=== PATIENT | female | born 1940 | race Caucasian/White ===

== ENCOUNTER 2021-04-11 11:55 | Inpatient (IN) ==
[2021-04-11] MEDS ORDERED: Al Hydrox/Mg Hydrox/Simet LIQ 30 ML UDC PO PRN (14:39)
[2021-04-11] MEDS ORDERED: Magnesium Hydroxide LIQ 30 ML UDC PO PRN (14:39)
[2021-04-11 14:45] LABS: Troponin I 0.11 ng/mL (<0.03)
[2021-04-11] MEDS ORDERED: NS 0.9% 1000 ml BAG 1,000 ML IV SCH (14:45)
[2021-04-11 17:31] LABS: Troponin I 0.06 ng/mL (<0.03)
[2021-04-11 19:42] LABS: Hematocrit 34 % (35-47); Hemoglobin 11.6 g/dL (12.0-16.0); Mean Corpuscular HGB Conc 34 g/dL (31-36); Mean Corpuscular Hemoglobin 31 pg (27-31); Mean Corpuscular Volume 91 fL (80-97); Mean Platelet Volume 6.6 fL (7.4-10.4); Platelet Count 280 10^3/uL (150-450); Red Blood Count 3.76 10^6 /uL (3.70-4.87); Red Cell Distribution Width 16 % (10-15); White Blood Count 18.7 10^3/uL (3.5-10.8)
[2021-04-11 20:40] LABS: ABS Lymphocytes 1.6 10^3/ul (1.0-4.8); ABS Monocytes 1.9 10^3/ul (0-0.8); ABS Neutrophils 15.2 10^3/ul (1.5-7.7); Eosinophil % 0.1 %; Lymphocyte % 8.3 %
[2021-04-11] MEDS ORDERED: Metoprolol Tartrate 5 mg VIAL 5 ml VIAL (1 mg/ml) IV ONE (23:58)
[2021-04-12] MEDS: cefTRIAXone 1 gm/50 mL NS BAG 1 GM/50 ML BAG IVPB SCH (05:13)
[2021-04-12 06:10] LABS: ABS Lymphocytes 1.4 10^3/ul (1.0-4.8); ABS Monocytes 1.5 10^3/ul (0-0.8); ABS Neutrophils 12.5 10^3/ul (1.5-7.7); Eosinophil % 0.1 %; Hematocrit 32 % (35-47); Hemoglobin 10.6 g/dL (12.0-16.0); Lymphocyte % 8.9 %; Mean Corpuscular HGB Conc 34 g/dL (31-36); Mean Corpuscular Hemoglobin 30 pg (27-31); Mean Corpuscular Volume 90 fL (80-97); Mean Platelet Volume 6.6 fL (7.4-10.4); Platelet Count 241 10^3/uL (150-450); Red Blood Count 3.51 10^6 /uL (3.70-4.87); Red Cell Distribution Width 16 % (10-15); White Blood Count 15.4 10^3/uL (3.5-10.8)
[2021-04-12 06:23] LABS: Potassium 4.8 mmol/L (3.5-5.0)
[2021-04-12 06:29] LABS: C Reactive Protein 47.31 mg/L (<8.01); eGFR CKD-EPI 29.7 (>60)
[2021-04-12] MEDS ORDERED: Perflutren Lipid Microsphere 3 ML VIAL ONE (10:12)
[2021-04-12] MEDS: Isosorbide Mononit ER 30mg TAB PO SCH (10:54)
[2021-04-12 13:11] LABS: Urine Appearance Cloudy; Urine Bilirubin Negative (Negative); Urine Blood 2+ (Negative); Urine Color Yellow; Urine Glucose Negative (Negative); Urine Ketones Negative (Negative); Urine Nitrite Negative (Negative); Urine Protein 1+(30 mg/dL) (Negative); Urine Specific Gravity 1.016 (1.002-1.030); Urine Urobilinogen Negative (Negative)
[2021-04-12 13:20] LABS: Urine Bacteria 1+ (Absent); Urine Red Blood Cell 3+(>10/hpf) (Absent); Urine White Blood Cell 1+(6-10/hpf) (Absent)
[2021-04-12] MEDS ORDERED: fentaNYL 100 mcg/2 ml 50 MCG/ML VIAL ONE (16:35)
[2021-04-13 05:43] LABS: ABS Monocytes 1.3 10^3/ul (0-0.8); ABS Neutrophils 10.7 10^3/ul (1.5-7.7); Eosinophil % 0.1 %; Hematocrit 27 % (35-47); Hemoglobin 9.3 g/dL (12.0-16.0); Lymphocyte % 7.8 %; Mean Corpuscular HGB Conc 34 g/dL (31-36); Mean Corpuscular Hemoglobin 31 pg (27-31); Mean Corpuscular Volume 89 fL (80-97); Mean Platelet Volume 6.7 fL (7.4-10.4); Platelet Count 214 10^3/uL (150-450); Red Blood Count 3.06 10^6 /uL (3.70-4.87); Red Cell Distribution Width 16 % (10-15); White Blood Count 13.1 10^3/uL (3.5-10.8)
[2021-04-13] MEDS: cefTRIAXone 1 gm/50 mL NS BAG 1 GM/50 ML BAG IVPB SCH (05:49)
[2021-04-13] MEDS: HYDROcodone/ACETAMIN 5/325 mg TAB PO PRN ×2 (05:54→20:10)
[2021-04-13 06:02] LABS: Calcium 8.1 mg/dL (8.6-10.3); Potassium 4.6 mmol/L (3.5-5.0); eGFR CKD-EPI 33.6 (>60)
[2021-04-13] MEDS: Isosorbide Mononit ER 30mg TAB PO SCH (08:41)
[2021-04-14 06:54] LABS: ABS Monocytes 0.9 10^3/ul (0-0.8); Eosinophil % 0.2 %; Hematocrit 26 % (35-47); Hemoglobin 8.7 g/dL (12.0-16.0); Mean Corpuscular HGB Conc 34 g/dL (31-36); Mean Corpuscular Hemoglobin 31 pg (27-31); Mean Corpuscular Volume 90 fL (80-97); Mean Platelet Volume 7.1 fL (7.4-10.4); Nucleated Red Blood Cells % 0.1; Platelet Count 202 10^3/uL (150-450); Red Blood Count 2.83 10^6 /uL (3.70-4.87); Red Cell Distribution Width 16 % (10-15); White Blood Count 10.9 10^3/uL (3.5-10.8)
[2021-04-14] MEDS: Isosorbide Mononit ER 30mg TAB PO SCH (09:48)
[2021-04-14] MEDS: HYDROcodone/ACETAMIN 5/325 mg TAB PO PRN (13:52)
[2021-04-15 06:13] LABS: ABS Lymphocytes 0.9 10^3/ul (1.0-4.8); ABS Monocytes 0.7 10^3/ul (0-0.8); ABS Neutrophils 8.2 10^3/ul (1.5-7.7); Eosinophil % 0.2 %; Hematocrit 27 % (35-47); Hemoglobin 9.2 g/dL (12.0-16.0); Lymphocyte % 9.1 %; Mean Corpuscular HGB Conc 34 g/dL (31-36); Mean Corpuscular Hemoglobin 31 pg (27-31); Mean Corpuscular Volume 91 fL (80-97); Mean Platelet Volume 6.8 fL (7.4-10.4); Nucleated Red Blood Cells % 0.1; Platelet Count 236 10^3/uL (150-450); Red Blood Count 2.98 10^6 /uL (3.70-4.87); Red Cell Distribution Width 16 % (10-15); White Blood Count 9.8 10^3/uL (3.5-10.8)
[2021-04-15] MEDS ORDERED: Senna TAB 8.6 mg TAB PO PRN (08:18)
[2021-04-15] MEDS: Isosorbide Mononit ER 30mg TAB PO SCH (08:56)
[2021-04-15] MEDS ORDERED: Polyethylene Glycol 3350 17 GM PACKET PO SCH (09:00)
[2021-04-15] MEDS ORDERED: Morphine ER 15 mg TAB ** extended release PO SCH (11:00)
[2021-04-15 11:32] VITALS: BP 134/57
[2021-04-15] MEDS ORDERED: oxyCODONE SR 10 mg TAB PO SCH (21:00)
[2021-04-15] MEDS ORDERED: Senna TAB 8.6 mg TAB PO SCH (21:00)
== END 2021-04-15 15:40 | disposition home or self-care (01) | DRG 687 ==
LOC: ED 11:55 → EDHOLD 14:46 → SUATTDRO 14:46 → MEDTELE 15:28
PROVIDERS: ADMIT Internal Medicine; ATTEND Internal Medicine

== ENCOUNTER 2021-06-17 23:22 | Inpatient (IN) ==
[2021-06-18] MEDS ORDERED: Ondansetron 4 mg VIAL 2 MG/ML 2 ml VIAL IV ONE (00:19)
[2021-06-18 00:29] LABS: ABS Eosinophils 0.2 10^3/ul (0-0.6); ABS Lymphocytes 0.5 10^3/ul (1.0-4.8); ABS Monocytes 0.7 10^3/ul (0-0.8); Eosinophil % 3.1 %; Hematocrit 35 % (35-47); Hemoglobin 11.6 g/dL (12.0-16.0); Lymphocyte % 8.5 %; Mean Corpuscular HGB Conc 33 g/dL (31-36); Mean Corpuscular Hemoglobin 31 pg (27-31); Mean Corpuscular Volume 93 fL (80-97); Mean Platelet Volume 6.7 fL (7.4-10.4); Nucleated Red Blood Cells % 0.1; Platelet Count 214 10^3/uL (150-450); Red Blood Count 3.76 10^6 /uL (3.70-4.87); Red Cell Distribution Width 18 % (10-15); White Blood Count 6.5 10^3/uL (3.5-10.8)
[2021-06-18] MEDS ORDERED: oxyCODONE/Acetamin 5/325 mg TAB PO ONE (00:35)
[2021-06-18 00:48] LABS: Albumin 3.4 g/dL (3.2-5.2); Albumin/Globulin Ratio 1.3 (1-3); Calcium 8.7 mg/dL (8.6-10.3); Globulin 2.6 g/dL (2-4); Potassium 3.6 mmol/L (3.5-5.0); Total Bilirubin 0.5 mg/dL (0.2-1.0); eGFR CKD-EPI 88.9 (>60)
[2021-06-18 00:51] LABS: Activated Partial Thrombo Time 32.5 seconds (26.0-38.0); INR 1.29 (0.86-1.15)
[2021-06-18] MEDS ORDERED: Furosemide 40 mg/4 ml IV VIAL IV SLOW PU ONE ×2 (03:39→18:00)
[2021-06-18] MEDS ORDERED: Magnesium Hydroxide LIQ 30 ML UDC PO PRN (03:42)
[2021-06-18] MEDS ORDERED: Senna TAB 8.6 mg TAB PO PRN (03:45)
[2021-06-18] MEDS ORDERED: Polyethylene Glycol 3350 17 GM PACKET PO PRN (03:45)
[2021-06-18] MEDS ORDERED: Iohexol 350 (CONTRAST) 500 ML MDV IV ONE (04:12)
[2021-06-18] MEDS: fentaNYL Patch Check Q Shift NOTE FOLLOW UP SCH ×3 (08:13→18:49)
[2021-06-18] MEDS ORDERED: fentaNYL PATCH 25 MCG/HR 1 PATCH TRANSDERM ONE (09:14)
[2021-06-18 09:18] LABS: ABS Eosinophils 0.1 10^3/ul (0-0.6); ABS Lymphocytes 0.4 10^3/ul (1.0-4.8); ABS Monocytes 0.7 10^3/ul (0-0.8); ABS Neutrophils 4.6 10^3/ul (1.5-7.7); Eosinophil % 1.8 %; Hematocrit 34 % (35-47); Hemoglobin 11.4 g/dL (12.0-16.0); Lymphocyte % 7.6 %; Mean Corpuscular HGB Conc 33 g/dL (31-36); Mean Corpuscular Hemoglobin 31 pg (27-31); Mean Corpuscular Volume 93 fL (80-97); Mean Platelet Volume 6.6 fL (7.4-10.4); Platelet Count 194 10^3/uL (150-450); Red Blood Count 3.69 10^6 /uL (3.70-4.87); Red Cell Distribution Width 17 % (10-15); White Blood Count 5.8 10^3/uL (3.5-10.8)
[2021-06-18 09:34] LABS: Calcium 8.9 mg/dL (8.6-10.3); Potassium 3.4 mmol/L (3.5-5.0); eGFR CKD-EPI 87.9 (>60)
[2021-06-18] MEDS: Vitamin THERAPEUTIC TAB PO SCH (09:39)
[2021-06-18] MEDS: Isosorbide Mononit ER 30mg TAB PO SCH (09:39)
[2021-06-18] MEDS: Furosemide 40 mg/4 ml IV VIAL IV SCH (09:40)
[2021-06-18] MEDS: fentaNYL PATCH 25 MCG/HR 1 PATCH TRANSDERM SCH (09:53)
[2021-06-18] MEDS ORDERED: Al Hydrox/Mg Hydrox/Simet LIQ 30 ML UDC PO PRN (15:20)
[2021-06-19 05:55] LABS: Calcium 8.7 mg/dL (8.6-10.3); Magnesium 1.8 mg/dL (1.9-2.7); Potassium 3.5 mmol/L (3.5-5.0)
[2021-06-19] MEDS: fentaNYL Patch Check Q Shift NOTE FOLLOW UP SCH ×2 (07:22→19:33)
[2021-06-19] MEDS: Isosorbide Mononit ER 30mg TAB PO SCH (08:09)
[2021-06-19] MEDS: Vitamin THERAPEUTIC TAB PO SCH (08:10)
[2021-06-19] MEDS: Furosemide 40 mg/4 ml IV VIAL IV SCH (08:11)
[2021-06-19] MEDS: Polyethylene Glycol 3350 17 GM PACKET PO SCH (10:06)
[2021-06-19] MEDS ORDERED: Iodixanol (CONTRAST) 320 MG/ML 100 ML SDV IV ONE (12:32)
[2021-06-19] MEDS ORDERED: fentaNYL 100 mcg/2 ml 50 MCG/ML VIAL ONE (16:18)
[2021-06-19] MEDS: Heparin 2 UNITS/ML 1000 mls 1,000 ML IV ONE ×2 (17:10→19:33)
[2021-06-20 06:36] LABS: Calcium 8.2 mg/dL (8.6-10.3); Magnesium 2.3 mg/dL (1.9-2.7); Potassium 3.7 mmol/L (3.5-5.0); eGFR CKD-EPI 45.1 (>60)
[2021-06-20] MEDS: fentaNYL Patch Check Q Shift NOTE FOLLOW UP SCH ×2 (07:22→19:35)
[2021-06-20] MEDS ORDERED: Perflutren Lipid Microsphere 3 ML VIAL ONE (10:50)
[2021-06-20] MEDS: Isosorbide Mononit ER 30mg TAB PO SCH (11:25)
[2021-06-20] MEDS: Polyethylene Glycol 3350 17 GM PACKET PO SCH (11:27)
[2021-06-20] MEDS: Vitamin THERAPEUTIC TAB PO SCH (11:27)
[2021-06-20] MEDS ORDERED: fentaNYL 100 mcg/2 ml 50 MCG/ML VIAL ONE (14:40)
[2021-06-20] MEDS ORDERED: Midazolam 5 mg/5 ml VIAL 1 mg/ml 5 ml VIAL (5 mg) ONE (14:40)
[2021-06-20] MEDS ORDERED: Lidocaine 1% VIAL 10 MG/ML VIAL ONE (14:40)
[2021-06-20] MEDS ORDERED: Heparin 2 UNITS/ML IVPREMIX 2,000 UNIT/1,000 ML BAG IV ONE (14:41)
[2021-06-20] MEDS ORDERED: Iodixanol 320 (CONTRAST) 100 ML SDV ONE (14:41)
[2021-06-21 06:28] LABS: Hematocrit 30 % (35-47); Hemoglobin 9.8 g/dL (12.0-16.0); Mean Corpuscular HGB Conc 33 g/dL (31-36); Mean Corpuscular Hemoglobin 31 pg (27-31); Mean Corpuscular Volume 93 fL (80-97); Mean Platelet Volume 6.9 fL (7.4-10.4); Platelet Count 162 10^3/uL (150-450); Red Blood Count 3.18 10^6 /uL (3.70-4.87); Red Cell Distribution Width 17 % (10-15); White Blood Count 4.5 10^3/uL (3.5-10.8)
[2021-06-21] MEDS: fentaNYL Patch Check Q Shift NOTE FOLLOW UP SCH ×2 (06:35→18:48)
[2021-06-21 06:49] LABS: Calcium 8.1 mg/dL (8.6-10.3); Potassium 3.9 mmol/L (3.5-5.0); eGFR CKD-EPI 37.6 (>60)
[2021-06-21] MEDS: fentaNYL PATCH 25 MCG/HR 1 PATCH TRANSDERM SCH (08:57)
[2021-06-21] MEDS: Polyethylene Glycol 3350 17 GM PACKET PO SCH (09:09)
[2021-06-21] MEDS: Isosorbide Mononit ER 30mg TAB PO SCH (09:10)
[2021-06-21] MEDS: Vitamin THERAPEUTIC TAB PO SCH (09:10)
[2021-06-21] MEDS ORDERED: Furosemide 40 mg/4 ml IV VIAL IV SLOW PU ONE (11:37)
[2021-06-21] MEDS ORDERED: Buffered Lidocaine 1% SYRIN 1 ml INTRADERM ONE (13:32)
[2021-06-21] MEDS ORDERED: Lactated Ringers 1000 ml BAG 1,000 ML IV SCH (14:00)
[2021-06-21 20:38] LABS: Urine Appearance Cloudy; Urine Bilirubin Negative (Negative); Urine Blood Negative (Negative); Urine Color Yellow; Urine Glucose Negative (Negative); Urine Ketones Negative (Negative); Urine Nitrite Negative (Negative); Urine Protein Negative (Negative); Urine Specific Gravity 1.013 (1.002-1.030); Urine Urobilinogen Negative (Negative)
[2021-06-21 21:32] LABS: Calcium 8.2 mg/dL (8.6-10.3); eGFR CKD-EPI 40.3 (>60)
[2021-06-21 21:55] LABS: Urine Osmo 237 mOsm/kg (150-1150)
[2021-06-22 05:52] LABS: ABS Eosinophils 0.3 10^3/ul (0-0.6); ABS Lymphocytes 0.5 10^3/ul (1.0-4.8); ABS Monocytes 0.6 10^3/ul (0-0.8); ABS Neutrophils 2.5 10^3/ul (1.5-7.7); Eosinophil % 7.8 %; Hematocrit 31 % (35-47); Lymphocyte % 13.6 %; Mean Corpuscular HGB Conc 32 g/dL (31-36); Mean Corpuscular Hemoglobin 30 pg (27-31); Mean Corpuscular Volume 92 fL (80-97); Mean Platelet Volume 6.9 fL (7.4-10.4); Platelet Count 187 10^3/uL (150-450); Red Blood Count 3.38 10^6 /uL (3.70-4.87); Red Cell Distribution Width 17 % (10-15); White Blood Count 3.9 10^3/uL (3.5-10.8)
[2021-06-22] MEDS ORDERED: Buffered Lidocaine 1% SYRIN 1 ml INTRADERM ONE (06:00)
[2021-06-22] MEDS ORDERED: Lactated Ringers 1000 ml BAG 1,000 ML IV SCH (06:00)
[2021-06-22 06:10] LABS: Calcium 8.4 mg/dL (8.6-10.3); Potassium 4.1 mmol/L (3.5-5.0); eGFR CKD-EPI 53.4 (>60)
[2021-06-22] MEDS: fentaNYL Patch Check Q Shift NOTE FOLLOW UP SCH ×2 (06:37→18:18)
[2021-06-22] MEDS ORDERED: Naloxone 0.4 mg VIAL 0.4 mg/ml 1 ml VIAL IV PRN (07:41)
[2021-06-22] MEDS ORDERED: fentaNYL 100 mcg/2 ml 50 MCG/ML VIAL ONE (08:04)
[2021-06-22] MEDS ORDERED: Propofol 10 MG/ML 20 ML BTL ONE ×2 (08:05→08:23)
[2021-06-22] MEDS ORDERED: Lidocaine 1% VIAL 10 MG/ML VIAL ONE ×2 (08:05→08:15)
[2021-06-22] MEDS ORDERED: Iodixanol 320 (CONTRAST) 100 ML SDV ONE (08:15)
[2021-06-22] MEDS ORDERED: Iohexol 350 (CONTRAST) 200 ML MDV IV ONE (08:15)
[2021-06-22] MEDS ORDERED: Heparin 2 UNITS/ML IVPREMIX 3,000 UNIT/1,500 ML BAG IV ONE (08:15)
[2021-06-22] MEDS ORDERED: Phenylephrine IV 10 MG/ML 1 ml VIAL ONE (08:21)
[2021-06-22] MEDS ORDERED: Alteplase 10 mg/10 mL (for intra-op IR use only, onetime) ONE (10:00)
[2021-06-22] MEDS ORDERED: Naloxone 0.4 mg VIAL 0.4 mg/ml 1 ml VIAL ONE (10:19)
[2021-06-22] MEDS ORDERED: Albuterol/Ipratropium NEB.SOL (2.5/0.5 MG) 3 ML NEB.SOLN INH PRN (11:51)
[2021-06-22] MEDS ORDERED: Furosemide 40 mg/4 ml IV VIAL IV SLOW PU ONE (14:15)
[2021-06-22] MEDS: Isosorbide Mononit ER 30mg TAB PO SCH (14:58)
[2021-06-22] MEDS: Vitamin THERAPEUTIC TAB PO SCH (14:59)
[2021-06-22] MEDS: Polyethylene Glycol 3350 17 GM PACKET PO SCH (14:59)
[2021-06-23 05:27] LABS: ABS Eosinophils 0.1 10^3/ul (0-0.6); ABS Lymphocytes 0.4 10^3/ul (1.0-4.8); ABS Monocytes 0.7 10^3/ul (0-0.8); ABS Neutrophils 3.6 10^3/ul (1.5-7.7); Eosinophil % 2.5 %; Hematocrit 32 % (35-47); Hemoglobin 10.3 g/dL (12.0-16.0); Lymphocyte % 8.3 %; Mean Corpuscular HGB Conc 32 g/dL (31-36); Mean Corpuscular Hemoglobin 30 pg (27-31); Mean Corpuscular Volume 92 fL (80-97); Mean Platelet Volume 6.6 fL (7.4-10.4); Platelet Count 188 10^3/uL (150-450); Red Blood Count 3.46 10^6 /uL (3.70-4.87); Red Cell Distribution Width 17 % (10-15); White Blood Count 4.8 10^3/uL (3.5-10.8)
[2021-06-23 05:34] LABS: INR 1.3 (0.86-1.15)
[2021-06-23 05:45] LABS: Albumin 2.9 g/dL (3.2-5.2); Albumin/Globulin Ratio 1.2 (1-3); Calcium 8.6 mg/dL (8.6-10.3); Globulin 2.4 g/dL (2-4); Magnesium 2.1 mg/dL (1.9-2.7); Phosphorus 3.4 mg/dL (2.5-5.0); Total Bilirubin 0.4 mg/dL (0.2-1.0); Total Protein 5.3 g/dL (6.4-8.9)
[2021-06-23] MEDS: fentaNYL Patch Check Q Shift NOTE FOLLOW UP SCH ×2 (06:57→19:08)
[2021-06-23] MEDS: Isosorbide Mononit ER 30mg TAB PO SCH (08:50)
[2021-06-23] MEDS: Vitamin THERAPEUTIC TAB PO SCH (08:50)
[2021-06-23] MEDS: Polyethylene Glycol 3350 17 GM PACKET PO SCH (08:51)
[2021-06-23] MEDS: fentaNYL PATCH 25 MCG/HR 1 PATCH TRANSDERM SCH (09:12)
[2021-06-23] MEDS ORDERED: Furosemide 40 mg/4 ml IV VIAL IV SLOW PU ONE (14:12)
[2021-06-23] MEDS ORDERED: Furosemide 40 mg/4 ml IV VIAL ONE (14:38)
[2021-06-24] MEDS: fentaNYL Patch Check Q Shift NOTE FOLLOW UP SCH ×2 (07:02→19:29)
[2021-06-24] MEDS: Polyethylene Glycol 3350 17 GM PACKET PO SCH (09:46)
[2021-06-24] MEDS: Isosorbide Mononit ER 30mg TAB PO SCH (09:47)
[2021-06-24] MEDS: Vitamin THERAPEUTIC TAB PO SCH (09:47)
[2021-06-24] MEDS ORDERED: Prochlorperazine 5 mg/ml 2 ml VIAL (10 mg) IV PRN (11:12)
[2021-06-24] MEDS ORDERED: Furosemide 40 mg/4 ml IV VIAL IV SLOW PU ONE (14:38)
[2021-06-24] MEDS ORDERED: Fluticasone NASAL SPRAY 50MCG 16 gm SPRAY BTL BOTH NARES PRN (16:53)
[2021-06-25] MEDS: fentaNYL Patch Check Q Shift NOTE FOLLOW UP SCH (06:46)
[2021-06-25] MEDS: Polyethylene Glycol 3350 17 GM PACKET PO SCH (08:17)
[2021-06-25] MEDS: Isosorbide Mononit ER 30mg TAB PO SCH (08:19)
[2021-06-25] MEDS: Vitamin THERAPEUTIC TAB PO SCH (08:19)
[2021-06-25] MEDS ORDERED: Furosemide 40 mg/4 ml IV VIAL IV SLOW PU ONE (08:41)
[2021-06-25] MEDS ORDERED: AXITINIB 5 MG PO SCH (09:00)
[2021-06-25] MEDS ORDERED: oxyCODONE SR 20 mg TAB PO SCH (12:00)
[2021-06-25] MEDS: AXITINIB 5 MG PO SCH ×2 (12:25→21:17)
[2021-06-25] MEDS: fentaNYL PATCH 25 MCG/HR 1 PATCH TRANSDERM SCH (12:29)
[2021-06-26 05:48] LABS: ABS Eosinophils 0.3 10^3/ul (0-0.6); ABS Monocytes 0.7 10^3/ul (0-0.8); ABS Neutrophils 3.5 10^3/ul (1.5-7.7); Eosinophil % 4.8 %; Hematocrit 36 % (35-47); Mean Corpuscular HGB Conc 33 g/dL (31-36); Mean Corpuscular Hemoglobin 31 pg (27-31); Mean Corpuscular Volume 91 fL (80-97); Mean Platelet Volume 6.8 fL (7.4-10.4); Nucleated Red Blood Cells % 0.1; Platelet Count 252 10^3/uL (150-450); Red Blood Count 3.96 10^6 /uL (3.70-4.87); Red Cell Distribution Width 17 % (10-15); White Blood Count 5.6 10^3/uL (3.5-10.8)
[2021-06-26 06:03] LABS: Potassium 3.1 mmol/L (3.5-5.0)
[2021-06-26 06:04] LABS: Calcium 8.7 mg/dL (8.6-10.3); Magnesium 1.7 mg/dL (1.9-2.7); eGFR CKD-EPI 89.8 (>60)
[2021-06-26] MEDS: Polyethylene Glycol 3350 17 GM PACKET PO SCH (08:52)
[2021-06-26] MEDS: Isosorbide Mononit ER 30mg TAB PO SCH (08:53)
[2021-06-26] MEDS: Vitamin THERAPEUTIC TAB PO SCH (08:53)
[2021-06-26] MEDS: oxyCODONE SR 20 mg TAB PO SCH ×2 (08:53→20:15)
[2021-06-26] MEDS: AXITINIB 5 MG PO SCH ×2 (08:54→20:16)
[2021-06-26] MEDS ORDERED: Potassium Chlor 20 meq TAB.ER PO ONE (08:57)
[2021-06-27 06:32] LABS: Calcium 8.7 mg/dL (8.6-10.3); Magnesium 1.8 mg/dL (1.9-2.7); Potassium 3.9 mmol/L (3.5-5.0)
[2021-06-27 06:37] LABS: eGFR CKD-EPI 90.5 (>60)
[2021-06-27] MEDS: Vitamin THERAPEUTIC TAB PO SCH (08:02)
[2021-06-27] MEDS: Isosorbide Mononit ER 30mg TAB PO SCH (08:02)
[2021-06-27] MEDS: oxyCODONE SR 20 mg TAB PO SCH ×2 (08:03→20:09)
[2021-06-27] MEDS: AXITINIB 5 MG PO SCH ×2 (08:08→20:11)
[2021-06-27] MEDS: Polyethylene Glycol 3350 17 GM PACKET PO SCH (08:13)
[2021-06-28 06:48] LABS: ABS Eosinophils 0.3 10^3/ul (0-0.6); ABS Lymphocytes 0.8 10^3/ul (1.0-4.8); ABS Monocytes 0.5 10^3/ul (0-0.8); ABS Neutrophils 3.5 10^3/ul (1.5-7.7); Eosinophil % 6.5 %; Hematocrit 34 % (35-47); Hemoglobin 11.3 g/dL (12.0-16.0); Lymphocyte % 15.3 %; Mean Corpuscular HGB Conc 33 g/dL (31-36); Mean Corpuscular Hemoglobin 30 pg (27-31); Mean Corpuscular Volume 92 fL (80-97); Mean Platelet Volume 6.9 fL (7.4-10.4); Platelet Count 225 10^3/uL (150-450); Red Blood Count 3.73 10^6 /uL (3.70-4.87); Red Cell Distribution Width 17 % (10-15); White Blood Count 5.2 10^3/uL (3.5-10.8)
[2021-06-28 07:04] LABS: Potassium 3.7 mmol/L (3.5-5.0)
[2021-06-28 07:05] LABS: Calcium 8.8 mg/dL (8.6-10.3); Magnesium 1.9 mg/dL (1.9-2.7)
[2021-06-28 07:34] VITALS: BP 169/90
[2021-06-28] MEDS: oxyCODONE SR 20 mg TAB PO SCH (08:48)
[2021-06-28] MEDS: Isosorbide Mononit ER 30mg TAB PO SCH (08:48)
[2021-06-28] MEDS: Vitamin THERAPEUTIC TAB PO SCH (08:48)
[2021-06-28] MEDS: AXITINIB 5 MG PO SCH (08:51)
[2021-06-28] MEDS: Polyethylene Glycol 3350 17 GM PACKET PO SCH (08:54)
== END 2021-06-28 09:32 | DRG 535 ==
LOC: ED 23:22 → SUATTDRO 06-18 08:32 → SSU 06-18 08:32 → ICU 06-22 11:20 → SSU 06-23 09:30
PROVIDERS: ADMIT Physician Assistant; ATTEND Hospitalist

== ENCOUNTER 2021-07-17 15:25 | Observation (INO) ==
[2021-07-17] MEDS: HYDROcodone/ACETAMIN 5/325 mg TAB PO PRN (17:55)
[2021-07-17 18:23] LABS: ABS Eosinophils 0.1 10^3/ul (0-0.6); ABS Lymphocytes 0.6 10^3/ul (1.0-4.8); ABS Monocytes 0.7 10^3/ul (0-0.8); ABS Neutrophils 6.3 10^3/ul (1.5-7.7); Eosinophil % 1.3 %; Hematocrit 38 % (35-47); Hemoglobin 12.4 g/dL (12.0-16.0); Lymphocyte % 7.8 %; Mean Corpuscular HGB Conc 33 g/dL (31-36); Mean Corpuscular Hemoglobin 30 pg (27-31); Mean Corpuscular Volume 90 fL (80-97); Mean Platelet Volume 7.2 fL (7.4-10.4); Platelet Count 359 10^3/uL (150-450); Red Blood Count 4.19 10^6 /uL (3.70-4.87); Red Cell Distribution Width 17 % (10-15); White Blood Count 7.7 10^3/uL (3.5-10.8)
[2021-07-17 19:07] LABS: Urine Appearance Cloudy; Urine Bilirubin Negative (Negative); Urine Blood Negative (Negative); Urine Color Yellow; Urine Glucose Negative (Negative); Urine Ketones Negative (Negative); Urine Nitrite Negative (Negative); Urine Protein 2+(100 mg/dL) (Negative); Urine Specific Gravity 1.021 (1.002-1.030); Urine Urobilinogen Negative (Negative)
[2021-07-17 19:10] LABS: Calcium 8.9 mg/dL (8.6-10.3); Potassium 4.1 mmol/L (3.5-5.0); Total Bilirubin 0.5 mg/dL (0.2-1.0); eGFR CKD-EPI 91.4 (>60)
[2021-07-17 19:14] LABS: Urine Bacteria 2+ (Absent); Urine Red Blood Cell Absent (Absent); Urine White Blood Cell 3+(>20/hpf) (Absent)
[2021-07-17] MEDS ORDERED: cefTRIAXone 1 gm/50 mL NS BAG 1 GM/50 ML BAG IV ONE (19:49)
[2021-07-17] MEDS ORDERED: Magnesium Hydroxide LIQ 30 ML UDC PO PRN (20:47)
[2021-07-17] MEDS ORDERED: AXITINIB 5 MG PO SCH (21:00)
[2021-07-17] MEDS ORDERED: oxyCODONE SR 20 mg TAB PO SCH (21:00)
[2021-07-17] MEDS: Senna TAB 8.6 mg TAB PO PRN (23:41)
[2021-07-17] MEDS: oxyCODONE SR 20 mg TAB PO SCH (23:42)
[2021-07-17] MEDS: Nystatin SUSPENSION 100,000 UNITS/ML UDC PO SCH (23:42)
[2021-07-18] MEDS: Polyethylene Glycol 3350 17 GM PACKET PO SCH (09:41)
[2021-07-18] MEDS: oxyCODONE SR 20 mg TAB PO SCH ×2 (09:42→21:07)
[2021-07-18] MEDS: Isosorbide Mononit ER 30mg TAB PO SCH (09:43)
[2021-07-18] MEDS: Nystatin SUSPENSION 100,000 UNITS/ML UDC PO SCH ×4 (09:44→21:07)
[2021-07-18] MEDS: Multivitamins/Minera Areds(NF) CAP PO SCH (09:44)
[2021-07-18] MEDS: Potassium Chlor 20 meq TAB.ER PO SCH (09:44)
[2021-07-18] MEDS: guaiFENesin 100 mg/5 ml LIQ unit dose cup PO SCH ×2 (09:45→21:07)
[2021-07-18] MEDS: HYDROcodone/ACETAMIN 5/325 mg TAB PO PRN ×2 (09:58→16:02)
[2021-07-18] MEDS ORDERED: Iodixanol (CONTRAST) 320 MG/ML 100 ML SDV IV ONE ×2 (12:17→15:31)
[2021-07-18] MEDS: Senna TAB 8.6 mg TAB PO PRN (21:05)
[2021-07-18] MEDS ORDERED: AXITINIB 5 MG PO SCH (23:30)
[2021-07-19] MEDS: Isosorbide Mononit ER 30mg TAB PO SCH (09:35)
[2021-07-19] MEDS: Potassium Chlor 20 meq TAB.ER PO SCH (09:37)
[2021-07-19] MEDS: oxyCODONE SR 20 mg TAB PO SCH ×2 (09:37→20:35)
[2021-07-19] MEDS: Polyethylene Glycol 3350 17 GM PACKET PO SCH (09:38)
[2021-07-19] MEDS: guaiFENesin 100 mg/5 ml LIQ unit dose cup PO SCH ×2 (09:41→20:50)
[2021-07-19] MEDS: Multivitamins/Minera Areds(NF) CAP PO SCH (09:44)
[2021-07-19] MEDS: Nystatin SUSPENSION 100,000 UNITS/ML UDC PO SCH ×4 (11:02→20:35)
[2021-07-19] MEDS ORDERED: Vancomycin 1,000 MG in NS 0.9% 250 ml 250 ML IVPB ONE (14:50)
[2021-07-19] MEDS ORDERED: Vancomycin 1500 MG IV - x ONCE IVPB ONE (15:00)
[2021-07-19] MEDS ORDERED: Vancomycin per Pharmacy 1 EA NOTE FOLLOW UP SCH (15:00)
[2021-07-20] MEDS ORDERED: Vancomycin 1000 MG in NS 0.9% 250 ML IVPB SCH (03:00)
[2021-07-20] MEDS ORDERED: Multivitamins/Minerals TAB PO SCH (09:00)
[2021-07-20] MEDS: oxyCODONE SR 20 mg TAB PO SCH (09:10)
[2021-07-20] MEDS: Isosorbide Mononit ER 30mg TAB PO SCH (09:10)
[2021-07-20] MEDS: Nystatin SUSPENSION 100,000 UNITS/ML UDC PO SCH (09:10)
[2021-07-20] MEDS: Potassium Chlor 20 meq TAB.ER PO SCH (09:10)
[2021-07-20] MEDS: guaiFENesin 100 mg/5 ml LIQ unit dose cup PO SCH (09:12)
[2021-07-20] MEDS: Polyethylene Glycol 3350 17 GM PACKET PO SCH (09:13)
[2021-07-20] MEDS: HYDROcodone/ACETAMIN 5/325 mg TAB PO PRN (12:33)
[2021-07-20 13:13] VITALS: BP 134/73
[2021-07-21] MEDS ORDERED: Vancomycin Trough Check NOTE FOLLOW UP ONE (14:30)
== END 2021-07-20 13:20 | disposition home or self-care (01) ==
LOC: EDHOLD 15:25 → ED 15:25 → SUATTDRO 20:43 → MED 22:38
PROVIDERS: ADMIT Student in an Organized Health Care Education/Training Program; ATTEND Internal Medicine